=== PATIENT | female | born 1940 | race Hispanic/Latino ===

== ENCOUNTER 2021-07-19 17:13 | Emergency (ER) | payer OTHER ==
[~2021-07-19] VITALS: Ht 157.5 cm; Wt 48.1 kg
[2021-07-19 17:14] VITALS: BP 162/98
[2021-07-19 17:15] VITALS: BP 162/98
== END 2021-07-19 23:45 | disposition left against medical advice (07) ==
LOC: EDH 17:13
DX: T78.49XA Other allergy, initial encounter (principal); X58.XXXA Exposure to other specified factors, initial encounter; Z53.21 Procedure and treatment not carried out due to patient leaving prior to being seen by health care provider
CPT/HCPCS: 87880